=== PATIENT | female | born 1970 | race American Indian/Alaskan Native ===

== ENCOUNTER 2019-11-25 23:47 | Emergency (ER) | payer SELFPAY ==
[2019-11-26] MEDS ORDERED: LISINOPRIL 20 MG TAB PO ONE (02:03)
[2019-11-26] MEDS ORDERED: IBUPROFEN 800 MG TAB PO ONE (02:04)
[2019-11-26] MEDS ORDERED: BUTALB/ACETAMINOPHEN/CAFFEINE TAB PO ONE (02:04)
--- NOTE | 2019-11-26 02:07 | Emergency Department Report ---
ED General Adult HPI - General Chief complaint: High BP Stated complaint: POSS HIGH BP SOB Source: patient Mode of arrival: Ambulatory Limitations: No Limitations - History of Present Illness Initial comments: Patient is a 49-year-old morbidly obese -[place] female with no past medical history who presents to the ED with persistent frontal and maxillary sinus pressure and headache, elevated blood pressure for the last 2 months, worse in the last 2 days. Patient denies dizziness, chest pain, shortness of breath, fever, chills, nausea, vomiting, abdominal pain, change in vision, syncope, seizures, palpitations or diaphoresis. She initially noticed her blood pressure was high about 2 months ago and that it has gotten worse and persistent in the last 1 month. MD Complaint: elevated BP; frontal sinus pressure and headache -: Sudden Location: head, face Radiation: non-radiation Severity scale (0 -10): 6 Quality: aching, sharp Consistency: constant Improves with: none Worsens with: none Associated Symptoms: denies other symptoms, headaches. denies: confusion, chest pain, cough, diaphoresis, fever/chills, loss of appetite, malaise, nausea/vomiting, seizure, shortness of breath, syncope, weakness Treatments Prior to Arrival: none - Related Data Previous Rx's Medication Instructions Recorded Last Taken Type Amoxicillin/Potassium Clav 1 each PO Q12H #20 tablet 11/26/19 Unknown Rx [Augmentin 875-125 Tablet] Butalb/Acetamin/Caff 50-325-40 1 - 2 tab PO Q6HR PRN #12 tab 11/26/19 Unknown Rx [Fioricet 50-325-40] Ibuprofen [Motrin] 800 mg PO Q8HR PRN #24 tablet 11/26/19 Unknown Rx Lisinopril/Hydrochlorothiazide 1 each PO DAILY #30 tablet 11/26/19 Unknown Rx [Zestoretic 20-12.5 mg] Allergies Allergy/AdvReac Type Severity Reaction Status Date / Time No Known Allergies Allergy Verified 11/26/19 00:30 ED Review of Systems ROS: Stated complaint: POSS HIGH BP SOB Other details as noted in HPI Constitutional: other (elevated BP). denies: chills, fever Eyes: denies: eye pain, eye discharge, vision change ENT: congestion. denies: ear pain, throat pain Respiratory: denies: cough, shortness of breath, wheezing Cardiovascular: denies: chest pain, palpitations Endocrine: no symptoms reported Gastrointestinal: denies: abdominal pain, nausea, diarrhea Genitourinary: denies: urgency, dysuria, discharge Musculoskeletal: denies: back pain, joint swelling, arthralgia Skin: denies: rash, lesions Neurological: headache. denies: weakness, paresthesias Psychiatric: denies: anxiety, depression Hematological/Lymphatic: denies: easy bleeding, easy bruising ED Past Medical Hx - Past Medical History Previous Medical History?: No - Surgical History Past Surgical History?: Yes Additional Surgical History: partial hyster - Social History Smoking Status: Never Smoker Substance Use Type: None - Medications Home Medications: Home Medications Medication Instructions Recorded Confirmed Last Taken Type Amoxicillin/Potassium Clav 1 each PO Q12H #20 tablet 11/26/19 Unknown Rx [Augmentin 875-125 Tablet] Butalb/Acetamin/Caff 50-325-40 1 - 2 tab PO Q6HR PRN #12 tab 11/26/19 Unknown Rx [Fioricet 50-325-40] Ibuprofen [Motrin] 800 mg PO Q8HR PRN #24 tablet 11/26/19 Unknown Rx Lisinopril/Hydrochlorothiazide 1 each PO DAILY #30 tablet 11/26/19 Unknown Rx [Zestoretic 20-12.5 mg] ED Physical Exam - General Limitations: No Limitations General appearance: alert, in no apparent distress - Head Head exam: Present: atraumatic, normocephalic, normal inspection - Eye Eye exam: Present: normal appearance, PERRL, EOMI Pupils: Present: normal accommodation - ENT ENT exam: Present: normal exam, normal orophraynx, mucous membranes moist, TM's normal bilaterally, normal external ear exam, other (Palpable frontal and maxillary sinus tenderness) - Neck Neck exam: Present: normal inspection, full ROM - Respiratory Respiratory exam: Present: normal lung sounds bilaterally. Absent: respiratory distress, wheezes, rales, rhonchi, chest wall tenderness, accessory muscle use, decreased breath sounds, prolonged expiratory - Cardiovascular Cardiovascular Exam: Present: regular rate, normal rhythm, normal heart sounds. Absent: systolic murmur, diastolic murmur, rubs, gallop - GI/Abdominal GI/Abdominal exam: Present: soft, normal bowel sounds. Absent: tenderness, rebound, hyperactive bowel sounds - Extremities Exam Extremities exam: Present: normal inspection, full ROM, normal capillary refill - Back Exam Back exam: Present: normal inspection, full ROM. Absent: tenderness, CVA tenderness (R), CVA tenderness (L), muscle spasm, paraspinal tenderness - Neurological Exam Neurological exam: Present: alert, oriented X3, CN II-XII intact, normal gait, reflexes normal - Psychiatric Psychiatric exam: Present: normal affect, normal mood - Skin Skin exam: Present: warm, dry, intact, normal color. Absent: rash ED Course Vital Signs 11/25/19 23:59 Temperature 98.2 F Pulse Rate 83 Respiratory 18 Rate Blood Pressure 162/78 O2 Sat by Pulse 96 Oximetry ED Medical Decision Making - Medical Decision Making This is a 49-year-old female who presented to the ED with persistent frontal sinus pressure and headache and persistently elevated blood pressure for 2 months, worse in the last 2 days. In the ED, patient is alert and oriented x3 and is not in distress but hypertensive in triage. Repeat vital signs also shows persistently elevated blood pressure which is particularly unchanged from the one taken in triage. Patient was treated for pain and for blood pressure in the ED. Patient was discharged home on blood pressure medication prescriptions and also medications for her sinus headache and sinusitis. Patient was advised to follow-up with her primary care physician in 5 to 7 days for reevaluation or return to the ED immediately if symptoms get worse. - Differential Diagnosis sinusitis; sinus headache; uncontrolled HTN Critical care attestation.: If time is entered above; I have spent that time in minutes in the direct care of this critically ill patient, excluding procedure time. ED Disposition Clinical Impression: Uncontrolled stage 2 hypertension, Acute bacterial sinusitis, Sinus headache Disposition: DC-01 TO HOME OR SELFCARE Is pt being admited?: No Does the pt Need Aspirin: No Condition: Stable Instructions: Hypertension (ED), Acute Bacterial Rhinosinusitis (ED), Acute Headache (ED) Additional Instructions: Take medication with food, drink plenty of fluids and follow-up with your primary care physician in 5 to 7 days for reevaluation. Return to the ED immediately if symptoms get worse. Prescriptions: Amoxicillin/Potassium Clav [Augmentin 875-125 Tablet] 1 each PO Q12H #20 tablet Butalb/Acetamin/Caff 50-325-40 [Fioricet 50-325-40] 1 - 2 tab PO Q6HR PRN #12 tab PRN Reason: Headache Ibuprofen [Motrin] 800 mg PO Q8HR PRN #24 tablet PRN Reason: Pain , Severe (7-10) Lisinopril/Hydrochlorothiazide [Zestoretic 20-12.5 mg] 1 each PO DAILY #30 tablet Referrals: RADHA CERNA MD [Staff Physician] - 7-10 days Time of Disposition: 02:10 Print Language: LATVIAN
[2019-11-26 02:37] VITALS: BP 167/91
== END 2019-11-26 02:35 | disposition home or self-care (01) ==
LOC: ED 23:47
DX: J01.90 Acute sinusitis, unspecified (principal); I10 Essential (primary) hypertension; Z79.899 Other long term (current) drug therapy
CPT/HCPCS: 99282

== ENCOUNTER 2019-11-29 01:28 | Emergency (ER) | payer SELFPAY ==
[2019-11-29 01:43] VITALS: BP 151/88
== END 2019-11-29 02:00 | disposition left against medical advice (07) ==
LOC: ED 01:28
DX: R20.2 Paresthesia of skin (principal); Z53.21 Procedure and treatment not carried out due to patient leaving prior to being seen by health care provider